=== PATIENT | female | born 1990 | race African-American/Black ===

== ENCOUNTER 2019-05-23 01:56 | Emergency (ER) | payer SELFPAY ==
[2019-05-23] MEDS ORDERED: PREDNISONE 20 MG TABLET PO ONE (02:20)
[2019-05-23] MEDS ORDERED: IPRATROPIUM/ALBUTEROL 0.5-2.5 MG/3 ML AMPUL NEB ONE (02:20)
[2019-05-23] MEDS ORDERED: ALBUTEROL SULFATE 0.083% NEB 2.5 MG/3 ML AMPUL NEB SCH (02:35)
[2019-05-23] MEDS ORDERED: ALBUTEROL SULFATE HFA (90 MCG/PUFF) 8 GM MDI (1 MDI/ER DISP) IH PRN (02:54)
--- NOTE | 2019-05-23 02:57 | ER Document Report ---
ED General - General Chief Complaint: Shortness Of Breath Stated Complaint: TROUBLE BREATHING Time Seen by Provider: 05/23/19 02:41 - HPI Notes: Patient is a 28-year-old female, , at approximately 36 weeks gestation, who presents emergency department for evaluation of cough and shortness of breath. Symptoms have been present for 3 days. No fevers or chills. She denies any chest pain. No nausea or vomiting. She is eating and drinking normally. She is still feeling the baby move. She denies any vaginal bleeding. Patient states that she does have gestational hypertension as well as gestational diabetes. She is unsure as to what medications she is taking for her blood pressure. She states she has been taking her insulin. - Related Data Allergies/Adverse Reactions: No Known Allergies Allergy (Unverified 05/23/19 02:36) Home Medications: Insulin, unknown blood pressure medications Past Medical History - General Information source: Patient - Social History Smoking Status: Never Smoker Chew tobacco use (# tins/day): No Frequency of alcohol use: None Drug Abuse: None Family History: Reviewed & Not Pertinent Patient has suicidal ideation: No Patient has homicidal ideation: No - Past Medical History Cardiac Medical History: Reports: Hx Hypertension - Gestational Endocrine Medical History: Reports: Other - Gestational diabetes Review of Systems - Review of Systems Constitutional: No symptoms reported EENT: No symptoms reported Cardiovascular: No symptoms reported Respiratory: See HPI Gastrointestinal: No symptoms reported Genitourinary: No symptoms reported Female Genitourinary: See HPI Musculoskeletal: No symptoms reported Skin: No symptoms reported Neurological/Psychological: No symptoms reported Physical Exam - Vital signs Vitals: Temp Pulse Resp BP Pulse Ox 97.8 F 104 H 22 H 197/126 H 99 05/23/19 02:01 05/23/19 02:01 05/23/19 02:01 05/23/19 02:01 05/23/19 02:01 - Notes Notes: This is a 28-year-old female, gravid, no acute distress. Head is normocephalic atraumatic, pupils are equal round, reactive to light. Oral mucosa is moist. Heart is regular rate and rhythm, lungs are clear to station bilaterally. Abdomen is gravid, nontender. Lower extremities reveal 1+ pitting edema to the pretibial region. No posterior calf tenderness. Skin is warm and dry. Course - Re-evaluation Re-evalutation: 05/23/19 03:12 Patient presents emergency department for evaluation of shortness of breath and cough. Her lungs are clear. She is 98% on room air. She is not having any significant respiratory distress. She received a breathing treatment per protocol and was feeling improved. I am not concerned about a significant pathology causing this patient's shortness of breath. She has clear lungs, is not tachypneic, denies any pleuritic type chest pain. I am mostly concerned about this patient's markedly elevated blood pressures her blood pressure on arrival is 197/126. She does have a history of preeclampsia. I discussed my concerns with the patient. She was given an albuterol inhaler to go, will be sent to the OB floor for further evaluation. I notified Dr. Pena of this patient and her impending arrival. - Vital Signs Vital signs: Temp Pulse Resp BP Pulse Ox 97.8 F 104 H 22 H 197/126 H 99 05/23/19 02:01 05/23/19 02:01 05/23/19 02:01 05/23/19 02:01 05/23/19 02:01 Discharge - Discharge Clinical Impression: Dyspnea, Hypertension affecting in third trimester Condition: Stable Disposition: OTHER Instructions: Dyspnea, Nonspecific ([facility]) Additional Instructions: You are being taken to the OB floor for further monitoring and testing. Use your albuterol inhaler, 1 to 2 puffs every 4-6 hours as needed for shortness of breath. Follow-up with your primary care doctor this week. Return to the emergency department with worsening or new concerning symptoms.
[2019-05-23 02:59] VITALS: BP 184/120
== END 2019-05-23 03:09 | disposition other institution (70) ==
LOC: ER 01:56
DX: O13.3 Gestational [pregnancy-induced] hypertension without significant proteinuria, third trimester (principal); O24.414 Gestational diabetes mellitus in pregnancy, insulin controlled; O26.893 Other specified pregnancy related conditions, third trimester; R06.00 Dyspnea, unspecified; R06.02 Shortness of breath; R05 Cough; Z3A.36 36 weeks gestation of pregnancy; Z79.899 Other long term (current) drug therapy
CPT/HCPCS: 94640; 99284; J3490; J7620

== ENCOUNTER 2019-05-23 03:11 | Outpatient (CLI) | payer SELFPAY ==
[2019-05-23 03:49] LABS: APPEARANCE,URINE CLOUDY; BILIRUBIN,URINE NEGATIVE (NEGATIVE); COLOR,URINE YELLOW; GLUCOSE, URINE NEGATIVE (NEGATIVE); KETONES,URINE NEGATIVE (NEGATIVE); LEUKOCYTE ESTERASE,URINE NEGATIVE (NEGATIVE); NITRITE,URINE NEGATIVE (NEGATIVE); PROTEIN,URINE >=500 mg/dL (NEGATIVE); URINE SPECIFIC GRAVITY 1.017; UROBILINOGEN,URINE NEGATIVE mg/dL (<2.0)
[2019-05-23 03:53] LABS: URINE AMPHETAMINES SCREEN NEGATIVE; URINE BARBITURATES SCREEN NEGATIVE; URINE BENZODIAZEPINES SCREEN NEGATIVE; URINE COCAINE SCREEN NEGATIVE; URINE MARIJUANA (THC) SCREEN NEGATIVE; URINE METHADONE SCREEN NEGATIVE; URINE PHENCYCLIDINE SCREEN NEGATIVE
[2019-05-23] MEDS ORDERED: HYDRALAZINE HCL INJ/PF 20 MG/1 ML SDV ONE (04:02)
[2019-05-23] MEDS ORDERED: HYDRALAZINE HCL INJ/PF 20 MG/1 ML SDV IV ONE (04:30)
[2019-05-23 04:58] LABS: URINE CREATININE 71.1 mg/dL (16-327)
[2019-05-23] MEDS ORDERED: ALBUTEROL SULFATE 0.083% NEB 2.5 MG/3 ML AMPUL NEB ONE ×2 (05:15)
[2019-05-23] MEDS ORDERED: LABETALOL HCL 200 MG TABLET ONE (05:22)
[2019-05-23 05:29] LABS: ABSOLUTE LYMPHOCYTES (AUTO) 1.8 10^3/uL (0.5-4.7); ABSOLUTE MONOCYTES (AUTO) 0.6 10^3/uL (0.1-1.4); ABSOLUTE NEUT (AUTO) 3.5 10^3/uL (1.7-8.2); BASOPHILS % (AUTO) 0.4 % (0-2); EOSINOPHILS % (AUTO) 0.6 % (0-6); HEMATOCRIT 28.7 % (36.0-47.0); HEMOGLOBIN 9.9 g/dL (12.0-15.5); LYMPHOCYTES % (AUTO) 30.3 % (13-45); MEAN CORPUSCULAR HEMOGLOBIN 25.2 pg (27.0-33.4); MEAN CORPUSCULAR HGB CONC 34.6 g/dL (32.0-36.0); MEAN CORPUSCULAR VOLUME 73 fl (80-97); MONOCYTES % (AUTO) 10.2 % (3-13); PLATELET COUNT 164 10^3/uL (150-450); RED BLOOD COUNT 3.93 10^6/uL (3.72-5.28); RED CELL DISTRIBUTION WIDTH 17.2 % (11.5-14.0); SEGMENTED NEUTROPHILS % (AUTO) 58.5 % (42-78); TOTAL CELLS COUNTED % (AUTO) 100 %
[2019-05-23 05:30] LABS: UR PRO/CREAT RATIO RESULT 14.7 mg/mg (0.0-0.2); URINE PROTEIN 1043.8 mg/dL (<12)
[2019-05-23] MEDS ORDERED: LABETALOL HCL 200 MG TABLET PO ONE (06:00)
[2019-05-23 06:02] LABS: ALBUMIN 2.4 g/dL (3.5-5.0); ALKALINE PHOSPHATASE 130 U/L (38-126); ANION GAP 7 (5-19); ASPARTATE AMINO TRANSFERASE 24 U/L (14-36); BILIRUBIN,TOTAL 0.3 mg/dL (0.2-1.3); BLOOD UREA NITROGEN 10 mg/dL (7-20); CALCIUM 8.3 mg/dL (8.4-10.2); CARBON DIOXIDE 23 mmol/L (22-30); CHLORIDE 108 mmol/L (98-107); GLUCOSE 71 mg/dL (75-110); POTASSIUM 3.7 mmol/L (3.6-5.0); URIC ACID 4.7 mg/dL (2.5-6.2)
== END 2019-05-23 06:14 | disposition home or self-care (01) ==
LOC: LC 03:11
PROVIDERS: ATTEND Obstetrics & Gynecology
PROC: 4A1HXCZ Monitoring of Products of Conception, Cardiac Rate, External Approach (ICD-10-PCS; principal; 2019-05-23)
DX: O14.93 Unspecified pre-eclampsia, third trimester (principal); O26.893 Other specified pregnancy related conditions, third trimester; R06.02 Shortness of breath; Z3A.36 36 weeks gestation of pregnancy
CPT/HCPCS: 59025; 36415; 83615; 84156; 84550; 82570; 85025; 80053; 81001; 80307; 94640; J0360

== ENCOUNTER 2019-08-13 11:05 | Emergency (ER) | payer MEDICAID ==
--- NOTE | 2019-08-13 11:32 | ER Document Report ---
ED Medical Screen (RME) - General Chief Complaint: Abscess Stated Complaint: CYST ALL OVER BODY Time Seen by Provider: 08/13/19 11:25 Primary Care Provider: CRISTIAN DE LOS SANTOS NP [Primary Care Provider] - Follow up as needed TRAVEL OUTSIDE OF THE [place] IN LAST 30 DAYS: No - HPI Notes: 08/13/19 11:30 28-year-old female to emergency department with complaints of multiple cysts on her body. They started several days ago. She has 1 to her right posterior thigh right buttocks into the right face. Denies any fevers or chills. When she checks into the emergency department today her heart rate was 148. Patient states that she has Graves' disease and has not been taking her medicine for over 2 months. She just had a baby 2 months ago. She states that she does not feel bad despite her heart rate being high. Denies any chest pain or shortness of breath. I performed a brief medical screening exam on the patient determined that she will need further management and evaluation by main side provider. I have placed initial lab orders and EKG. Have notified the charge nurse of her heart rate and need for bedding. - Related Data Allergies/Adverse Reactions: No Known Allergies Allergy (Verified 08/13/19 11:24) Past Medical History - Past Medical History Cardiac Medical History: Reports: Hx Hypertension - Gestational Physical Exam - Vital signs Vitals: Temp Pulse Resp BP Pulse Ox 98.1 F 148 H 20 160/102 H 99 08/13/19 11:14 08/13/19 11:14 08/13/19 11:14 08/13/19 11:14 08/13/19 11:14 Course - Vital Signs Vital signs: Temp Pulse Resp BP Pulse Ox 98.1 F 148 H 20 160/102 H 99 08/13/19 11:14 08/13/19 11:14 08/13/19 11:14 08/13/19 11:14 08/13/19 11:14 Doctor's Discharge - Discharge Referrals: CRISTIAN DE LOS SANTOS NP [Primary Care Provider] - Follow up as needed
[2019-08-13 12:42] LABS: ABSOLUTE BASOPHILS # (AUTO) 0.1 10^3/uL (0.0-0.2); ABSOLUTE EOSINOPHILS # (AUTO) 0.1 10^3/uL (0.0-0.6); ABSOLUTE LYMPHOCYTES (AUTO) 2.4 10^3/uL (0.5-4.7); ABSOLUTE MONOCYTES (AUTO) 0.6 10^3/uL (0.1-1.4); BASOPHILS % (AUTO) 1.1 % (0-2); EOSINOPHILS % (AUTO) 1.7 % (0-6); HEMATOCRIT 34.9 % (36.0-47.0); HEMOGLOBIN 12.4 g/dL (12.0-15.5); MEAN CORPUSCULAR HEMOGLOBIN 25.8 pg (27.0-33.4); MEAN CORPUSCULAR HGB CONC 35.6 g/dL (32.0-36.0); MEAN CORPUSCULAR VOLUME 72 fl (80-97); MONOCYTES % (AUTO) 10.3 % (3-13); PLATELET COUNT 291 10^3/uL (150-450); RED BLOOD COUNT 4.82 10^6/uL (3.72-5.28); RED CELL DISTRIBUTION WIDTH 16.5 % (11.5-14.0); SEGMENTED NEUTROPHILS % (AUTO) 47.9 % (42-78); TOTAL CELLS COUNTED % (AUTO) 100 %; WHITE BLOOD COUNT 6.2 10^3/uL (4.0-10.5)
[2019-08-13 13:06] LABS: ALBUMIN 3.7 g/dL (3.5-5.0); ALKALINE PHOSPHATASE 136 U/L (38-126); ANION GAP 10 (5-19); ASPARTATE AMINO TRANSFERASE 47 U/L (14-36); BILIRUBIN,TOTAL 0.7 mg/dL (0.2-1.3); BLOOD UREA NITROGEN 13 mg/dL (7-20); CALCIUM 10.1 mg/dL (8.4-10.2); CARBON DIOXIDE 23 mmol/L (22-30); CHLORIDE 108 mmol/L (98-107); GLUCOSE 182 mg/dL (75-110); POTASSIUM 3.7 mmol/L (3.6-5.0)
[2019-08-13 13:35] LABS: FREE T4 (FREE THYROXINE) > 6.99 ng/dL (0.78-2.19); THYROID STIMULATING HORMONE < 0.01 uIU/mL (0.47-4.68)
--- NOTE | 2019-08-13 16:05 | EKG REPORT ---
SEVERITY:- ABNORMAL ECG - SINUS TACHYCARDIA ALEJANDRA, CONSIDER BIATRIAL ABNORMALITIES PROBABLE LEFT VENTRICULAR HYPERTROPHY : Confirmed by: Black Peterson MD 13-Aug-2019 16:04:14
--- NOTE | 2019-08-13 16:26 | ER Document Report ---
ED General - General Chief Complaint: Abscess Stated Complaint: CYST ALL OVER BODY Time Seen by Provider: 08/13/19 11:25 Primary Care Provider: CRISTIAN DE LOS SANTOS NP [NO LOCAL MD] - Follow up as needed Information source: Patient TRAVEL OUTSIDE OF THE [place] IN LAST 30 DAYS: No COUNTRY TRAVELED TO/FROM: [place] travel to [place] - HPI Onset: Other - 3 days prior Onset/Duration: Sudden Quality of pain: Burning Severity: Mild Pain Level: 1 Associated symptoms: Other - Insomnia Exacerbated by: Movement Relieved by: Denies Similar symptoms previously: No Recently seen / treated by doctor: Yes - Related Data Allergies/Adverse Reactions: No Known Allergies Allergy (Verified 08/13/19 11:24) Past Medical History - General Information source: Patient - Social History Smoking Status: Current Some Day Smoker Cigarette use (# per day): Yes Chew tobacco use (# tins/day): No Smoking Education Provided: Yes Frequency of alcohol use: None Drug Abuse: None Lives with: Family - [facility] at side in [facility] Family History: Thyroid Disfunction Patient has suicidal ideation: No Patient has homicidal ideation: No - Past Medical History Cardiac Medical History: Reports: Hx Hypertension - Gestational Review of Systems - Review of Systems Constitutional: Other - Childbirth EENT: No symptoms reported Cardiovascular: No symptoms reported Respiratory: No symptoms reported Gastrointestinal: No symptoms reported Genitourinary: No symptoms reported Female Genitourinary: Other - Left pubic hair skin cyst Musculoskeletal: No symptoms reported Skin: Other - Multiple skin lesions to include facial neck abdomen chest arms back and buttocks but none on the lower extremities; these lesions appear to be folliculitis furuncles staph type lesions Hematologic/Lymphatic: No symptoms reported Neurological/Psychological: Other - Insomnia Physical Exam - Vital signs Vitals: Temp Pulse Resp BP Pulse Ox 98.1 F 148 H 20 160/102 H 99 08/13/19 11:14 08/13/19 11:14 08/13/19 11:14 08/13/19 11:14 08/13/19 11:14 Interpretation: Hypertensive - General General appearance: Alert, Anxious - HEENT Head: Normocephalic Eyes: Normal Conjunctiva: Normal Cornea: Normal Extraocular movements intact: Yes Eyelashes: Normal Pupils: PERRL Sinus: Normal Mouth/Lips: Normal - Respiratory Respiratory status: No respiratory distress Chest status: Nontender Breath sounds: Normal Chest palpation: Normal - Cardiovascular Rhythm: Regular Heart sounds: Normal auscultation Murmur: No Friction rub: No Janis's crunch: No - Abdominal Inspection: Normal Distension: No distension Bowel sounds: Normal Tenderness: Nontender - Genitourinary External exam: Normal, Other - Female nursing staff at bedside - Extremities General upper extremity: Other - Skin lesions over arms discrete annular round 1 cm diameter General lower extremity: Normal inspection - Neurological Neuro grossly intact: Yes Cognition: Normal Orientation: AAOx4 [place] Coma Scale Eye Opening: Spontaneous [place] Coma Scale Verbal: Oriented Elvia Coma Scale Motor: Obeys Commands Elvia Coma Scale Total: 15 Speech: Normal Cranial nerves: Normal Cerebellar coordination: Normal Course - Vital Signs Vital signs: Temp Pulse Resp BP Pulse Ox 98.1 F 148 H 18 143/91 H 99 08/13/19 11:14 08/13/19 11:14 08/13/19 13:01 08/13/19 13:01 08/13/19 11:14 - Laboratory Result Diagrams: 08/13/19 12:20 08/13/19 12:20 Laboratory results interpreted by me: 08/13/19 08/13/19 08/13/19 12:20 12:20 12:20 Hct 34.9 L MCV 72 L MCH 25.8 L RDW 16.5 H Chloride 108 H Creatinine 0.29 L Glucose 182 H AST 47 H Alkaline Phosphatase 136 H TSH < 0.01 L Free T4 > 6.99 H Critical Care Note - Critical Care Note Total time excluding time spent on procedures (mins): 90 Comments: I discussed this case with patient and she already knew she had Graves' disease and is being followed by a [facility] layer out. She takes Inderal and Tapazole Discharge - Discharge Clinical Impression: Folliculitis, Carbuncle and furuncle of buttock, Graves disease, Hypertension Condition: Good Disposition: HOME, SELF-CARE Additional Instructions: Follow-up with personal doctor and apply Hibiclens to affected skin twice a day for 1 week and wash off with lukewarm water not hot nor cold allow the Hibiclens to stay on the skin for least 10 minutes; apply Bactroban to nose nightly for 1 week; take Atarax as needed for irritation or insomnia Prescriptions: Hydroxyzine HCl [Atarax 10 mg Tablet] 10 mg PO TID PRN #30 tablet PRN Reason: Sulfamethoxazole/Trimethoprim [Bactrim Ds Tablet] 1 tab PO BID #20 tablet Mupirocin [Bactroban 2% Ointment 22 gm] 1 applic NASL HSP PRN #1 tube PRN Reason: Referrals: CRISTIAN DE LOS SANTOS, [employer] [NO LOCAL MD] - Follow up as needed
[2019-08-13] MEDS ORDERED: GENTAMICIN SULFATE INJ 80 MG/2 ML VIAL IV ONE (16:33)
[2019-08-13] MEDS ORDERED: HYDROXYZINE HCL INJ 50 MG/1 ML VIAL IM ONE (16:34)
[2019-08-13 17:36] VITALS: BP 140/90
== END 2019-08-13 17:39 | disposition home or self-care (01) ==
LOC: ER 11:05
DX: L73.9 Follicular disorder, unspecified (principal); L02.33 Carbuncle of buttock; L02.32 Furuncle of buttock; L72.9 Follicular cyst of the skin and subcutaneous tissue, unspecified; E05.00 Thyrotoxicosis with diffuse goiter without thyrotoxic crisis or storm; I10 Essential (primary) hypertension; G47.00 Insomnia, unspecified; F17.210 Nicotine dependence, cigarettes, uncomplicated; Z79.899 Other long term (current) drug therapy
CPT/HCPCS: 93005; 99285; 96372; 96365; 36415; 87040; 84439; 84443; 85025; 87077; 80053; 87186; 87150 ×26; 93010; J1580; J3410

== ENCOUNTER 2019-09-02 11:28 | Emergency (ER) | payer MEDICAID ==
--- NOTE | 2019-09-02 12:08 | ER Document Report ---
ED Medical Screen (RME) - General Chief Complaint: Flu Symptoms Stated Complaint: BODY PAIN Time Seen by Provider: 09/02/19 12:05 Mode of Arrival: Ambulatory Information source: Patient Notes: 29-year-old female presented to ED for cough cold congestion flulike symptoms body aches. Her pulse is between 139 245. She states she does have hyper per thyroidism Graves' disease. She was on methimazole but she has not been on it recently. She states she ran out a week ago. Patient is alert oriented respirations regular nonlabored speaking in full sentences. I have greeted and performed a rapid initial assessment of this patient. A comprehensive ED assessment and evaluation of the patient, analysis of test results and completion of medical decision making process will be conducted by an additional ED providers. TRAVEL OUTSIDE OF THE [place] IN LAST 30 DAYS: No COUNTRY TRAVELED TO/FROM: No travel to [place] - Related Data Allergies/Adverse Reactions: No Known Allergies Allergy (Verified 09/02/19 12:00) Past Medical History - Past Medical History Cardiac Medical History: Reports: Hx Hypertension - Gestational Physical Exam - Vital signs Vitals: Temp Pulse Resp BP Pulse Ox 98.1 F 146 H 20 153/92 H 98 09/02/19 11:50 09/02/19 11:50 09/02/19 11:50 09/02/19 11:50 09/02/19 11:50 Course - Vital Signs Vital signs: Temp Pulse Resp BP Pulse Ox 98.1 F 146 H 20 153/92 H 98 09/02/19 11:50 09/02/19 11:50 09/02/19 11:50 09/02/19 11:50 09/02/19 11:50
[2019-09-02 13:10] LABS: A TYPE INFLUENZA AG NEGATIVE (NEGATIVE); B INFLUENZA AG NEGATIVE (NEGATIVE)
[2019-09-02 13:15] LABS: TOTAL CELLS COUNTED % (AUTO) 100 %
[2019-09-02 13:24] LABS: APPEARANCE,URINE SLIGHTLY-CLOUDY; BILIRUBIN,URINE NEGATIVE (NEGATIVE); COLOR,URINE AMBER; GLUCOSE, URINE NEGATIVE (NEGATIVE); KETONES,URINE NEGATIVE (NEGATIVE); PROTEIN,URINE 100 mg/dL (NEGATIVE); URINE SPECIFIC GRAVITY 1.029; UROBILINOGEN,URINE NEGATIVE mg/dL (<2.0)
[2019-09-02 13:33] LABS: ALBUMIN 3.9 g/dL (3.5-5.0); ALKALINE PHOSPHATASE 129 U/L (38-126); ANION GAP 12 (5-19); ASPARTATE AMINO TRANSFERASE 54 U/L (14-36); BILIRUBIN,TOTAL 0.5 mg/dL (0.2-1.3); BLOOD UREA NITROGEN 12 mg/dL (7-20); CALCIUM 9.5 mg/dL (8.4-10.2); CARBON DIOXIDE 23 mmol/L (22-30); CHLORIDE 104 mmol/L (98-107); GLUCOSE 193 mg/dL (75-110); POTASSIUM 3.5 mmol/L (3.6-5.0); TOTAL PROTEIN 7.5 g/dL (6.3-8.2)
[2019-09-02 13:38] LABS: ABSOLUTE LYMPHOCYTES (AUTO) 1.9 10^3/uL (0.5-4.7); ABSOLUTE MONOCYTES (AUTO) 0.6 10^3/uL (0.1-1.4); ABSOLUTE NEUT (AUTO) 2.2 10^3/uL (1.7-8.2); BASOPHILS % (AUTO) 0.4 % (0-2); EOSINOPHILS % (AUTO) 0.6 % (0-6); HEMATOCRIT 36.6 % (36.0-47.0); HEMOGLOBIN 12.9 g/dL (12.0-15.5); MEAN CORPUSCULAR HEMOGLOBIN 25.7 pg (27.0-33.4); MEAN CORPUSCULAR HGB CONC 35.2 g/dL (32.0-36.0); MEAN CORPUSCULAR VOLUME 73 fl (80-97); MONOCYTES % (AUTO) 13.6 % (3-13); PLATELET COUNT 228 10^3/uL (150-450); RED CELL DISTRIBUTION WIDTH 15.4 % (11.5-14.0); SEGMENTED NEUTROPHILS % (AUTO) 46.4 % (42-78); WHITE BLOOD COUNT 4.8 10^3/uL (4.0-10.5)
[2019-09-02 13:39] LABS: URINE AMPHETAMINES SCREEN NEGATIVE; URINE BARBITURATES SCREEN NEGATIVE; URINE BENZODIAZEPINES SCREEN NEGATIVE; URINE COCAINE SCREEN NEGATIVE; URINE METHADONE SCREEN NEGATIVE; URINE PHENCYCLIDINE SCREEN NEGATIVE
[2019-09-02 13:41] LABS: URINE MARIJUANA (THC) SCREEN UNCONFIRMED POSITIVE
[2019-09-02 14:05] LABS: FREE T3 > 22.80 pg/mL (2.77-5.27); FREE T4 (FREE THYROXINE) > 6.99 ng/dL (0.78-2.19); THYROID STIMULATING HORMONE < 0.01 uIU/mL (0.47-4.68)
--- NOTE | 2019-09-02 14:31 | EKG REPORT ---
SEVERITY:- ABNORMAL ECG - SINUS TACHYCARDIA LEFT ATRIAL ABNORMALITY PROBABLE LEFT VENTRICULAR HYPERTROPHY : Confirmed by: Black Peterson MD 02-Sep-2019 14:30:52
--- NOTE | 2019-09-02 15:25 | ER Document Report ---
ED General - General Chief Complaint: Flu Symptoms Stated Complaint: BODY PAIN Time Seen by Provider: 09/02/19 12:05 Mode of Arrival: Ambulatory Notes: 29-year-old woman presents to the emergency department with a history of symptoms of the flu. She has a history of Graves' disease and previously treated with propranolol and methimazole. She presents with complaint of flulike illness. She complains of body aches and pains with congestion and drainage. States that her symptoms began 2 days ago and have continued. She has a 3-month-old who has developed a fever of 103 with cough and congestion as well. TRAVEL OUTSIDE OF THE [place] IN LAST 30 DAYS: No COUNTRY TRAVELED TO/FROM: No travel to [place] - Related Data Allergies/Adverse Reactions: No Known Allergies Allergy (Verified 09/02/19 12:00) Past Medical History - General Information source: Patient - Social History Smoking Status: Current Every Day Smoker Chew tobacco use (# tins/day): No Frequency of alcohol use: None Drug Abuse: None Family History: Thyroid Disfunction Patient has suicidal ideation: No Patient has homicidal ideation: No - Past Medical History Cardiac Medical History: Reports: Hx Hypertension - Gestational Review of Systems - Review of Systems Notes: Constitutional: + Fever. HENT: Negative for sore throat. Eyes: Negative for visual changes. Cardiovascular: + Tachycardia, negative for chest pain. Respiratory: + Cough, negative for shortness of breath. Gastrointestinal: Negative for abdominal pain, vomiting or diarrhea. Genitourinary: Negative for dysuria. Musculoskeletal: + Myalgias, + back pain Skin: Negative for rash. Neurological: Negative for headaches, weakness or numbness. 10 point ROS negative except as marked above and in HPI. Physical Exam - Vital signs Vitals: Temp Pulse Resp BP Pulse Ox 98.1 F 146 H 20 153/92 H 98 09/02/19 11:50 09/02/19 11:50 09/02/19 11:50 09/02/19 11:50 09/02/19 11:50 - Notes Notes: PHYSICAL EXAMINATION: Physical Exam: General: Well-nourished well-developed female in no acute distress HEENT: NC/AT, pupils equal round and reactive to light, MM moist,nares clear, oropharynx clear Neck: supple, no adenopathy, no masses. Lungs: clear, no wheezing, no rales no rhonchi CVS: Tachycardia rate and rhythm no murmur gallop or rub Abdomen: Soft active nontender, no masses, no hepatosplenomegaly Ext: No edema clubbing or cyanosis. Neuro: Alert and responsive, moving all 4 extremities on command, cranial nerves intact. Skin: Intact no open lesions, no rash PSYCH: Normal mood, normal affect. Course - Vital Signs Vital signs: Temp Pulse Resp BP Pulse Ox 98.1 F 146 H 21 H 153/92 H 96 09/02/19 11:50 09/02/19 11:50 09/02/19 15:00 09/02/19 11:50 09/02/19 15:00 - Laboratory Result Diagrams: 09/02/19 13:00 09/02/19 13:00 Laboratory results interpreted by me: 09/02/19 09/02/19 09/02/19 12:47 13:00 13:00 MCV 73 L MCH 25.7 L RDW 15.4 H Reagan % (Auto) 13.6 H Potassium 3.5 L Creatinine 0.27 L Glucose 193 H AST 54 H ALT 36 H Alkaline Phosphatase 129 H TSH Free T4 Free T3 pg/mL Urine Protein 100 H Urine Blood MODERATE H Leukocyte Esterase Rfl LARGE H 09/02/19 13:00 MCV MCH RDW Reagan % (Auto) Potassium Creatinine Glucose AST ALT Alkaline Phosphatase TSH < 0.01 L Free T4 > 6.99 H Free T3 pg/mL > 22.80 H Urine Protein Urine Blood Leukocyte Esterase Rfl Discharge - Discharge Clinical Impression: Influenza, Graves' disease, Tachycardia Condition: Good Disposition: HOME, SELF-CARE Instructions: Influenza ([facility]) [id number] Additional Instructions: Please follow-up with your regular doctor regarding your Graves' disease. You should be back on your metoprolol and methimazole dosage. I am we will start you on Tamiflu today given your symptoms and the frequency of influenza in the area. You may return to the emergency department if you have other concerns or difficulties. Prescriptions: Oseltamivir Phosphate [Tamiflu 75 mg Capsule] 75 mg PO BID #5 capsule
[2019-09-02] MEDS ORDERED: PROPRANOLOL HCL 40 MG TABLET PO ONE (15:26)
[2019-09-02] MEDS ORDERED: METHIMAZOLE 5 MG TABLET PO ONE (15:27)
[2019-09-02 16:23] VITALS: BP 137/92
== END 2019-09-02 16:23 | disposition home or self-care (01) ==
LOC: ER 11:28
DX: J11.1 Influenza due to unidentified influenza virus with other respiratory manifestations (principal); E05.00 Thyrotoxicosis with diffuse goiter without thyrotoxic crisis or storm; R00.0 Tachycardia, unspecified; F17.200 Nicotine dependence, unspecified, uncomplicated
CPT/HCPCS: 93005; 99283; 36415; 87070; 84439; 87880; 84443; 84703; 85025; 87077; 80053; 81001; 80307; 84481; 87804; 93010; J3490